=== PATIENT | male | born 1990 | race African-American/Black ===

== ENCOUNTER 2023-10-24 00:30 | Emergency (ER) | payer SELFPAY ==
[~2023-10-24] VITALS: Ht 175.3 cm; Wt 93.0 kg
[2023-10-24 00:33] VITALS: BP 114/76; PULSE 82; RESP 16; TEMP 97.9; O2SAT 99
[2023-10-24] MEDS ORDERED: TETANUS, DIPHTHERIA, PERTUSSIS VAC/PF 0.5ML (>10YR OLD) IM ONE (01:30)
[2023-10-24] MEDS ORDERED: BACITRACIN ZINC OINT UDPKT TOP ONE (01:30)
[2023-10-24] MEDS ORDERED: LIDOCAINE HCL/PF 1% 10 MG/ML 5ML VIAL INFIL ONE (01:30)
[2023-10-24] MEDS ORDERED: BO1 TP (03:01)
== END 2023-10-24 03:50 | disposition home or self-care (01) ==
LOC: ER 00:30
DX: S61.213A Laceration without foreign body of left middle finger without damage to nail, initial encounter (principal); X58.XXXA Exposure to other specified factors, initial encounter; Y93.89 Activity, other specified; Y92.89 Other specified places as the place of occurrence of the external cause; Y99.8 Other external cause status
CPT/HCPCS: 12001; 99283; J3490; Z7610 ×3